=== PATIENT | male | born 1975 | race Caucasian/White ===

== ENCOUNTER 2017-03-09 15:58 | Emergency (ER) | payer MEDICAID ==
[~2017-03-09] VITALS: Ht 188 cm; Wt 87.7 kg
[~2017-03-09 15:58] MED LIST: DOXY150T PO; PERCT10 PO
[2017-03-09 16:34] VITALS: BP 133/60
== END 2017-03-09 17:12 | disposition home or self-care (01) ==
LOC: EMS 16:00
DX: Z48.00 Encounter for change or removal of nonsurgical wound dressing (principal); F17.210 Nicotine dependence, cigarettes, uncomplicated; F12.10 Cannabis abuse, uncomplicated; Z88.0 Allergy status to penicillin
CPT/HCPCS: 99282